=== PATIENT | male | born 1975 | race African-American/Black ===

== ENCOUNTER 2017-10-04 07:00 | Emergency (ER) | payer SELFPAY ==
[~2017-10-04] VITALS: Ht 170.2 cm; Wt 81.8 kg
[~2017-10-04 07:00] MED LIST: ABILIFY 15MG TA15 MG PO; AMBIEN 5MG TABLE5 MG PO; AZULFIDINE ENT500 MG PO; CELEXA10 MG PO; MOTRIN 800800 MG/TAB PO; PERCOCET 325 MG1 TA2 PO; XANAX .25M0.25 MG/TA PO; [UNRECOGNIZED DRUG - REMARK]
[2017-10-04 07:03] VITALS: BP 136/84; TEMP 97.2
[2017-10-04] MEDS ORDERED: ABILIFY 10MG TA10 MG PO (07:15)
[2017-10-04] MEDS ORDERED: SEROQUEL50 MG PO (07:16)
[2017-10-04 07:41] VITALS: PULSE 85
== END 2017-10-04 07:40 | disposition home or self-care (01) ==
LOC: COL.ER 07:00
DX: B07.9 Viral wart, unspecified (principal); F17.210 Nicotine dependence, cigarettes, uncomplicated

== ENCOUNTER → 2018-11-10 | Emergency (ER) | payer SELFPAY ==
[~2018-11-10] VITALS: Ht 170.2 cm; Wt 77.3 kg
[~2018-11-10] MED LIST changes: +ABILIFY 10MG TA10 MG PO; +SEROQUEL50 MG PO
[2018-11-10 12:44] VITALS: TEMP 98
[2018-11-10 13:36] LABS: BASO % 0.3 % (0.0-2.0); EOS # 0.1 (0.0-0.7); EOS % 1.1 % (0-4.0); GRAN # 3.7 (1.4-6.5); GRAN % 57.6 % (42.2-75.2); HEMATOCRIT 48.6 % (42.0-52.0); HEMOGLOBIN 16.5 g/dl (13.5-18.0); LYMPH # 1.8 (1.2-3.4); LYMPH % 28.7 % (20.0-51.0); MEAN CELL VOLUME 94 fl (80.0-100.0); MEAN CORPUSCULAR HEMOGLOBIN 32 pg (27.0-31.0); MEAN CORPUSCULAR HGB CONC 34 g/dl (33.0-37.0); MEAN PLATELET VOLUME 10.1 fl (7.4-10.4); MONO # 0.8 (0.1-0.6); MONO % 12.1 % (1.7-9.3); PLATELET COUNT 214 K/mm3 (130-400); REDCELL DISTRIBUTION WIDTH-CV 13.5 % (11.5-14.5)
[2018-11-10 13:57] LABS: ACETAMINOPHEN < 10 ug/mL (10-30); ALANINE AMINOTRANSFERASE < 6 U/L (21-72); ALBUMIN 4.5 gm/dL (3.5-5.0); ALCOHOL(ethanol),MEDICAL 57 mg/dL; ALKALINE PHOSPHATASE 81 U/L (50-136); ANION GAP 17 mmol/L (7-16); AST,SGOT 33 U/L (15-37); BILIRUBIN,TOTAL 0.4 mg/dL (0.0-1.0); BLOOD UREA NITROGEN 17 mg/dL (9-20); CALCIUM 9.7 mg/dL (8.4-10.2); CARBON DIOXIDE 16 mmol/L (22-30); CHLORIDE 110 mmol/L (98-107); GLUCOSE 98 mg/dL (74-106); POTASSIUM 3.7 mmol/L (3.4-5.0); SALICYLATE < 1.0 mg/dL; SODIUM 143 mmol/L (137-145); TOTAL PROTEIN 7.9 gm/dL (6.4-8.2)
[2018-11-10 14:12] LABS: COLLECTION METHOD CLEAN CATCH
[2018-11-10 14:18] LABS: MUCOUS Present /lpf; PH 5 (5-8); SQUAMOUS EPITHELIAL 0-2 /hpf; URINE APPEARANCE Clear; URINE BACTERIA None Seen /hpf; URINE BILIRUBIN Negative (NEGATIVE); URINE BLOOD Negative (NEGATIVE); URINE COLOR Yellow; URINE GLUCOSE Negative (NEGATIVE); URINE KETONE Trace (NEGATIVE); URINE LEUKOCYTE ESTERASE Negative (NEGATIVE); URINE NITRATE Negative (NEGATIVE); URINE PROTEIN(semi-quant) Negative (NEGATIVE); URINE UROBILINOGEN Negative (NEGATIVE)
[2018-11-10 14:27] LABS: TRICYCLIC ANTIDEPRESS URINE NEGATIVE
[2018-11-11 00:08] LABS: ALBUMIN 4.1 gm/dL (3.5-5.0); BILIRUBIN,TOTAL 0.6 mg/dL (0.0-1.0); CALCIUM 9.5 mg/dL (8.4-10.2); CREATININE, serum 1.2 (0.66-1.25); POTASSIUM 4.3 mmol/L (3.4-5.0); TOTAL PROTEIN 7.3 gm/dL (6.4-8.2)
[2018-11-11 12:15] VITALS: BP 122/65
[2018-11-12 13:10] VITALS: PULSE 78
== END ==
LOC: COL.ER 12:36
PROVIDERS: Nurse Practitioner; Physician Assistant
DX: R45.851 Suicidal ideations (principal); F17.210 Nicotine dependence, cigarettes, uncomplicated; F31.9 Bipolar disorder, unspecified; F20.9 Schizophrenia, unspecified; F43.10 Post-traumatic stress disorder, unspecified; F19.10 Other psychoactive substance abuse, uncomplicated
CPT/HCPCS: J1630; J2060

== ENCOUNTER 2019-02-08 12:15 | Emergency (ER) | payer SELFPAY ==
[~2019-02-08] VITALS: Ht 170.2 cm; Wt 72.7 kg
[2019-02-08 12:27] VITALS: TEMP 98.4
[2019-02-08 12:57] LABS: COLLECTION METHOD CLEAN CATCH
[2019-02-08 13:11] LABS: BASO % 0.2 % (0.0-2.0); EOS % 0.6 % (0-4.0); GRAN # 4.1 (1.4-6.5); GRAN % 62.1 % (42.2-75.2); HEMATOCRIT 47.4 % (42.0-52.0); HEMOGLOBIN 16.4 g/dl (13.5-18.0); LYMPH # 1.6 (1.2-3.4); MEAN CELL VOLUME 92 fl (80.0-100.0); MEAN CORPUSCULAR HEMOGLOBIN 32 pg (27.0-31.0); MEAN CORPUSCULAR HGB CONC 35 g/dl (33.0-37.0); MEAN PLATELET VOLUME 10.1 fl (7.4-10.4); MONO # 0.8 (0.1-0.6); MONO % 11.8 % (1.7-9.3); PLATELET COUNT 235 K/mm3 (130-400); RED BLOOD COUNT 5.14 M/mm3 (4.20-5.60)
[2019-02-08 13:16] LABS: TRICYCLIC ANTIDEPRESS URINE NEGATIVE
[2019-02-08 13:23] LABS: ALANINE AMINOTRANSFERASE 16 U/L (21-72); ALBUMIN 4.6 gm/dL (3.5-5.0); ALCOHOL(ethanol),MEDICAL 20 mg/dL; ALKALINE PHOSPHATASE 95 U/L (50-136); ANION GAP 11 mmol/L (7-16); AST,SGOT 29 U/L (15-37); BILIRUBIN,TOTAL 0.6 mg/dL (0.0-1.0); BLOOD UREA NITROGEN 6 mg/dL (9-20); CALCIUM 9.6 mg/dL (8.4-10.2); CARBON DIOXIDE 22 mmol/L (22-30); CHLORIDE 106 mmol/L (98-107); CREATININE, serum 0.93 (0.66-1.25); GLUCOSE 87 mg/dL (74-106); POTASSIUM 3.6 mmol/L (3.4-5.0); SODIUM 139 mmol/L (137-145)
[2019-02-08 13:25] LABS: ACETAMINOPHEN < 10 ug/mL (10-30); SALICYLATE < 1.0 mg/dL
[2019-02-08 13:43] LABS: PH 6 (5-8); SQUAMOUS EPITHELIAL None Seen /hpf; URINE APPEARANCE Clear; URINE BACTERIA None Seen /hpf; URINE BILIRUBIN Negative (NEGATIVE); URINE BLOOD Negative (NEGATIVE); URINE COLOR Straw; URINE GLUCOSE Negative (NEGATIVE); URINE KETONE Negative (NEGATIVE); URINE LEUKOCYTE ESTERASE Negative (NEGATIVE); URINE NITRATE Negative (NEGATIVE); URINE PROTEIN(semi-quant) Negative (NEGATIVE); URINE RBC 0-2 /hpf; URINE UROBILINOGEN Negative (NEGATIVE)
[2019-02-08 13:53] LABS: TSH w REFLEX 0.592 uIU/mL (0.465-4.680)
[2019-02-08 20:16] VITALS: BP 118/82; PULSE 104
== END 2019-02-08 20:16 | disposition home or self-care (01) ==
LOC: COL.ER 12:15
PROVIDERS: Physician Assistant
DX: R45.851 Suicidal ideations (principal); F17.210 Nicotine dependence, cigarettes, uncomplicated

== ENCOUNTER 2019-02-23 07:59 | Emergency (ER) | payer SELFPAY ==
[~2019-02-23] VITALS: Ht 170.2 cm; Wt 72.7 kg
[2019-02-23 08:03] VITALS: BP 141/77; PULSE 77; TEMP 97.4
[2019-02-23 08:31] LABS: COLLECTION METHOD CLEAN CATCH
[2019-02-23 08:38] LABS: MUCOUS Present /lpf; PH 6 (5-8); SQUAMOUS EPITHELIAL None Seen /hpf; URINE APPEARANCE Clear; URINE BACTERIA None Seen /hpf; URINE BILIRUBIN Negative (NEGATIVE); URINE BLOOD Negative (NEGATIVE); URINE COLOR Yellow; URINE GLUCOSE Negative (NEGATIVE); URINE KETONE Trace (NEGATIVE); URINE LEUKOCYTE ESTERASE Negative (NEGATIVE); URINE NITRATE Negative (NEGATIVE); URINE PROTEIN(semi-quant) Negative (NEGATIVE); URINE RBC 0-2 /hpf
[2019-02-23 08:54] LABS: BASO % 0.2 % (0.0-2.0); EOS # 0.1 (0.0-0.7); EOS % 0.6 % (0-4.0); GRAN # 6.7 (1.4-6.5); GRAN % 74.1 % (42.2-75.2); HEMATOCRIT 43.3 % (42.0-52.0); HEMOGLOBIN 14.7 g/dl (13.5-18.0); LYMPH # 1.4 (1.2-3.4); MEAN CELL VOLUME 94 fl (80.0-100.0); MEAN CORPUSCULAR HEMOGLOBIN 32 pg (27.0-31.0); MEAN CORPUSCULAR HGB CONC 34 g/dl (33.0-37.0); MEAN PLATELET VOLUME 10.3 fl (7.4-10.4); MONO # 0.9 (0.1-0.6); MONO % 9.9 % (1.7-9.3); PLATELET COUNT 199 K/mm3 (130-400); REDCELL DISTRIBUTION WIDTH-CV 13.6 % (11.5-14.5)
[2019-02-23 08:56] LABS: TRICYCLIC ANTIDEPRESS URINE NEGATIVE
[2019-02-23 09:02] LABS: ALANINE AMINOTRANSFERASE 12 U/L (21-72); ALBUMIN 4.2 gm/dL (3.5-5.0); ALKALINE PHOSPHATASE 67 U/L (50-136); ANION GAP 7 mmol/L (7-16); AST,SGOT 27 U/L (15-37); BILIRUBIN,TOTAL 0.3 mg/dL (0.0-1.0); BLOOD UREA NITROGEN 10 mg/dL (9-20); CALCIUM 9.5 mg/dL (8.4-10.2); CARBON DIOXIDE 25 mmol/L (22-30); CHLORIDE 108 mmol/L (98-107); CREATININE, serum 0.96 (0.66-1.25); GLUCOSE 94 mg/dL (74-106); POTASSIUM 3.9 mmol/L (3.4-5.0); SODIUM 141 mmol/L (137-145)
[2019-02-23 09:05] LABS: ACETAMINOPHEN < 10 ug/mL (10-30); ALCOHOL(ethanol),MEDICAL < 10 mg/dL; SALICYLATE < 1.0 mg/dL
== END 2019-02-23 16:35 | disposition home or self-care (01) ==
LOC: COL.ER 07:59
PROVIDERS: Physician Assistant
DX: F32.9 Major depressive disorder, single episode, unspecified (principal); R45.851 Suicidal ideations; F19.10 Other psychoactive substance abuse, uncomplicated; F20.9 Schizophrenia, unspecified; F17.210 Nicotine dependence, cigarettes, uncomplicated; Z98.890 Other specified postprocedural states

== ENCOUNTER 2020-03-10 18:09 | Emergency (ER) | payer SELFPAY ==
[~2020-03-10] VITALS: Ht 170.2 cm; Wt 65.9 kg
[2020-03-10 18:14] VITALS: TEMP 97.8
[2020-03-10 18:27] LABS: COLLECTION METHOD CLEAN CATCH
[2020-03-10 18:31] LABS: BASO % 0.3 % (0.0-2.0); EOS % 0.6 % (0-4.0); GRAN # 3.6 (1.4-6.5); GRAN % 57.5 % (42.2-75.2); HEMATOCRIT 41.9 % (42.0-52.0); HEMOGLOBIN 14.2 g/dl (13.5-18.0); LYMPH # 1.5 (1.2-3.4); MEAN CELL VOLUME 93 fl (80.0-100.0); MEAN CORPUSCULAR HEMOGLOBIN 32 pg (27.0-31.0); MEAN CORPUSCULAR HGB CONC 34 g/dl (33.0-37.0); MEAN PLATELET VOLUME 10.4 fl (7.4-10.4); MONO # 1.1 (0.1-0.6); MONO % 17.3 % (1.7-9.3); PLATELET COUNT 200 K/mm3 (130-400); RED BLOOD COUNT 4.51 M/mm3 (4.20-5.60); REDCELL DISTRIBUTION WIDTH-CV 13.4 % (11.5-14.5)
[2020-03-10 18:43] LABS: ALANINE AMINOTRANSFERASE 24 U/L (4-49); ALBUMIN 4.4 gm/dL (3.5-5.0); ALKALINE PHOSPHATASE 86 U/L (50-136); ANION GAP 8 mmol/L (7-16); AST,SGOT 51 U/L (15-37); BILIRUBIN,TOTAL 0.6 mg/dL (0.0-1.0); BLOOD UREA NITROGEN 15 mg/dL (9-20); C-REACTIVE PROTEIN 0.9 mg/dL (0.0-0.9); CALCIUM 9.2 mg/dL (8.4-10.2); CARBON DIOXIDE 25 mmol/L (22-30); CHLORIDE 103 mmol/L (98-107); GLUCOSE 92 mg/dL (74-106); MUCOUS Present /lpf; PH 5 (5-8); POTASSIUM 3.6 mmol/L (3.4-5.0); SODIUM 135 mmol/L (137-145); SQUAMOUS EPITHELIAL None Seen /hpf; TOTAL PROTEIN 7.5 gm/dL (6.4-8.2); URINE APPEARANCE Clear; URINE BACTERIA None Seen /hpf; URINE BILIRUBIN Negative (NEGATIVE); URINE BLOOD Negative (NEGATIVE); URINE COLOR Yellow; URINE GLUCOSE Negative (NEGATIVE); URINE KETONE 1+ (NEGATIVE); URINE LEUKOCYTE ESTERASE Negative (NEGATIVE); URINE NITRATE Negative (NEGATIVE); URINE PROTEIN(semi-quant) Negative (NEGATIVE); URINE RBC 0-2 /hpf
[2020-03-10 18:44] LABS: ACETAMINOPHEN < 10 ug/mL (10-30); ALCOHOL(ethanol),MEDICAL < 10 mg/dL; SALICYLATE < 1.0 mg/dL; TRICYCLIC ANTIDEPRESS URINE NEGATIVE
[2020-03-10 18:52] LABS: TROPONIN-I < 0.012 ng/mL (0.000-0.035)
[2020-03-10 21:30] VITALS: BP 135/60; PULSE 88
== END 2020-03-10 21:45 | disposition home or self-care (01) ==
LOC: COL.ER 18:09
PROVIDERS: Emergency Medicine
DX: F19.10 Other psychoactive substance abuse, uncomplicated (principal)
CPT/HCPCS: J7030

== ENCOUNTER 2020-03-13 20:14 | Emergency (ER) | payer SELFPAY ==
[~2020-03-13] VITALS: Ht 170.2 cm; Wt 63.6 kg
[2020-03-13 20:21] VITALS: TEMP 97.1
[2020-03-13 21:43] LABS: BASO % 0.2 % (0.0-2.0); EOS % 0.2 % (0-4.0); GRAN # 6.1 (1.4-6.5); GRAN % 69.1 % (42.2-75.2); HEMATOCRIT 37.9 % (42.0-52.0); HEMOGLOBIN 12.9 g/dl (13.5-18.0); LYMPH # 1.7 (1.2-3.4); LYMPH % 18.6 % (20.0-51.0); MEAN CELL VOLUME 93 fl (80.0-100.0); MEAN CORPUSCULAR HEMOGLOBIN 32 pg (27.0-31.0); MEAN CORPUSCULAR HGB CONC 34 g/dl (33.0-37.0); MEAN PLATELET VOLUME 10.8 fl (7.4-10.4); MONO % 11.7 % (1.7-9.3); PLATELET COUNT 181 K/mm3 (130-400); RED BLOOD COUNT 4.07 M/mm3 (4.20-5.60); REDCELL DISTRIBUTION WIDTH-CV 13.2 % (11.5-14.5)
[2020-03-13 21:50] LABS: ALANINE AMINOTRANSFERASE 59 U/L (4-49); ALBUMIN 4.1 gm/dL (3.5-5.0); ALKALINE PHOSPHATASE 74 U/L (50-136); ANION GAP 6 mmol/L (7-16); AST,SGOT 171 U/L (15-37); BILIRUBIN,TOTAL 0.6 mg/dL (0.0-1.0); BLOOD UREA NITROGEN 18 mg/dL (9-20); CALCIUM 8.9 mg/dL (8.4-10.2); CARBON DIOXIDE 24 mmol/L (22-30); CHLORIDE 104 mmol/L (98-107); CREATININE, serum 1.34 (0.66-1.25); GLUCOSE 90 mg/dL (74-106); POTASSIUM 4.1 mmol/L (3.4-5.0); SODIUM 134 mmol/L (137-145); TOTAL PROTEIN 6.9 gm/dL (6.4-8.2)
[2020-03-13 21:57] LABS: ACETAMINOPHEN < 10 ug/mL (10-30); ALCOHOL(ethanol),MEDICAL < 10 mg/dL; SALICYLATE < 1.0 mg/dL
[2020-03-13 22:06] LABS: COLLECTION METHOD CLEAN CATCH
[2020-03-13 22:20] LABS: TRICYCLIC ANTIDEPRESS URINE NEGATIVE
[2020-03-13 22:22] LABS: MUCOUS Present /lpf; PH 5 (5-8); SQUAMOUS EPITHELIAL 0-2 /hpf; URINE APPEARANCE Clear; URINE BACTERIA None Seen /hpf; URINE BILIRUBIN Negative (NEGATIVE); URINE BLOOD Negative (NEGATIVE); URINE COLOR Yellow; URINE GLUCOSE Negative (NEGATIVE); URINE KETONE 2+ (NEGATIVE); URINE LEUKOCYTE ESTERASE Negative (NEGATIVE); URINE NITRATE Negative (NEGATIVE); URINE PROTEIN(semi-quant) Negative (NEGATIVE); URINE RBC 0-2 /hpf
[2020-03-14 15:27] VITALS: BP 122/84; PULSE 90
== END 2020-03-14 15:28 ==
LOC: COL.ER 20:14
PROVIDERS: Nurse Practitioner
DX: R45.851 Suicidal ideations (principal); M79.621 Pain in right upper arm; F31.9 Bipolar disorder, unspecified; F20.9 Schizophrenia, unspecified; F17.210 Nicotine dependence, cigarettes, uncomplicated; F15.90 Other stimulant use, unspecified, uncomplicated
CPT/HCPCS: J2060

== ENCOUNTER 2020-04-16 11:30 | Emergency (ER) | payer SELFPAY ==
[~2020-04-16] VITALS: Ht 170.2 cm; Wt 63.6 kg
[~2020-04-16 11:30] MED LIST changes: +DOXYCYCLINE HY100 MG PO
[2020-04-16 11:34] VITALS: BP 108/73; PULSE 99; TEMP 98.2
== END 2020-04-16 13:20 | disposition home or self-care (01) ==
LOC: COL.ER 11:30
DX: S90.31XA Contusion of right foot, initial encounter (principal); F17.210 Nicotine dependence, cigarettes, uncomplicated; X50.0XXA Overexertion from strenuous movement or load, initial encounter; Y93.61 Activity, american tackle football

== ENCOUNTER 2022-04-05 13:58 | Emergency (ER) | payer SELFPAY ==
[~2022-04-05] VITALS: Ht 170.2 cm; Wt 72.7 kg
[2022-04-05 16:45] LABS: COLLECTION METHOD CLEAN CATCH
[2022-04-05 16:48] LABS: BASO % 0.4 % (0.0-2.0); EOS % 0.6 % (0.0-4.0); GRAN # 2.7 K/mm3 (1.4-6.5); GRAN % 49.5 % (42.2-75.2); HEMATOCRIT 47.4 % (42.0-52.0); HEMOGLOBIN 16.4 g/dl (13.5-18.0); LYMPH # 2.1 K/mm3 (1.2-3.4); LYMPH % 38.2 % (20.0-51.0); MEAN CELL VOLUME 90 fl (80.0-100.0); MEAN CORPUSCULAR HEMOGLOBIN 31 pg (27-31); MEAN CORPUSCULAR HGB CONC 35 g/dl (33.0-37.0); MEAN PLATELET VOLUME 10.5 fl (7.4-10.4); MONO # 0.6 K/mm3 (0.1-0.6); MONO % 11.3 % (1.7-9.3); PLATELET COUNT 233 K/mm3 (130-400); RED BLOOD COUNT 5.27 M/mm3 (4.20-5.60); REDCELL DISTRIBUTION WIDTH-CV 13.3 % (11.5-14.5)
[2022-04-05 17:05] LABS: ALANINE AMINOTRANSFERASE 29 U/L (0-55); ALBUMIN 4.5 gm/dL (3.5-5.0); ALKALINE PHOSPHATASE 88 U/L (40-150); ANION GAP 10 mmol/L (7-16); AST,SGOT 47 U/L (5-34); BILIRUBIN,TOTAL 0.7 mg/dL (0.2-1.2); BLOOD UREA NITROGEN 11 mg/dL (9-21); CALCIUM 9.5 mg/dL (8.4-10.2); CARBON DIOXIDE 27 mmol/L (22-29); CHLORIDE 103 mmol/L (98-107); CREATININE, serum 1.25 mg/dL (0.72-1.25); GLUCOSE 84 mg/dL (70-99); POTASSIUM 4.2 mmol/L (3.5-4.5); SODIUM 140 mmol/L (136-145); TOTAL PROTEIN 8.1 gm/dL (6.2-8.1)
[2022-04-05 17:06] LABS: URINE APPEARANCE Clear (CLEAR/HAZY); URINE COLOR Yellow (YELLOW); URINE GLUCOSE Negative (NEGATIVE); URINE KETONE 4+ (NEGATIVE); URINE PROTEIN(semi-quant) Negative (NEGATIVE); URINE UROBILINOGEN 0.2 E.U/dL (0.2-1.0)
[2022-04-05 17:07] LABS: ACETAMINOPHEN < 1.0 ug/mL (10-30); ALCOHOL(ethanol),MEDICAL < 10 mg/dL (0-10); SALICYLATE < 5.0 mg/dL (15.0-30.0); URINE BLOOD Negative (NEGATIVE); URINE NITRATE Negative (NEGATIVE)
[2022-04-05 17:11] LABS: MUCOUS Present (NOT PRESENT); SQUAMOUS EPITHELIAL None Seen /hpf (0-10); URINE BACTERIA None Seen /hpf (NONE SEEN); URINE RBC 0-2 /hpf (0-2)
[2022-04-05 17:12] LABS: TRICYCLIC ANTIDEPRESS URINE NEGATIVE
[2022-04-07 08:55] VITALS: BP 116/80; PULSE 92; TEMP 97.9
== END 2022-04-07 08:55 ==
LOC: COL.ER 13:58
PROVIDERS: Nurse Practitioner
DX: F15.10 Other stimulant abuse, uncomplicated (principal); F32.A Depression, unspecified; F17.210 Nicotine dependence, cigarettes, uncomplicated; Z20.822 Contact with and (suspected) exposure to COVID-19; Z91.14 Patient's other noncompliance with medication regimen

== ENCOUNTER 2022-08-24 11:09 | Emergency (ER) | payer OTHER ==
[~2022-08-24] VITALS: Ht 170.2 cm; Wt 75.0 kg
[2022-08-24 12:58] VITALS: BP 123/86; PULSE 88; TEMP 98
== END 2022-08-24 13:05 | disposition home or self-care (01) ==
LOC: COL.ER 11:09
DX: M25.511 Pain in right shoulder (principal); M25.571 Pain in right ankle and joints of right foot; M25.562 Pain in left knee; L53.9 Erythematous condition, unspecified; F17.200 Nicotine dependence, unspecified, uncomplicated; V00.148A Other scooter (nonmotorized) accident, initial encounter; Y92.410 Unspecified street and highway as the place of occurrence of the external cause

== ENCOUNTER 2022-08-26 16:12 | Emergency (ER) | payer MEDICAID ==
[~2022-08-26] VITALS: Ht 170.2 cm; Wt 75.0 kg
[2022-08-26 16:24] VITALS: TEMP 98.1
[2022-08-26 19:00] VITALS: BP 155/88; PULSE 104
== END 2022-08-26 19:00 | disposition home or self-care (01) ==
LOC: COL.ER 16:12
DX: M75.01 Adhesive capsulitis of right shoulder (principal)
CPT/HCPCS: J1100

== ENCOUNTER 2022-08-28 16:57 | Emergency (ER) | payer MEDICAID ==
[~2022-08-28] VITALS: Ht 170.2 cm; Wt 75.0 kg
[2022-08-28 16:57] VITALS: PULSE 115; TEMP 100.3
[2022-08-28 17:00] VITALS: BP 97/77
== END 2022-08-28 17:47 | disposition home or self-care (01) ==
LOC: COL.ER 16:57
DX: M25.511 Pain in right shoulder (principal); R45.6 Violent behavior; R00.0 Tachycardia, unspecified

== ENCOUNTER 2022-08-30 14:05 | Emergency (ER) | payer MEDICAID ==
[~2022-08-30] VITALS: Ht 170.2 cm; Wt 75.0 kg
[2022-08-30 14:07] VITALS: BP 156/99; PULSE 105; TEMP 98.1
[2022-08-30] MEDS ORDERED: NAPROSYN500 MG PO (15:05)
== END 2022-08-30 15:40 | disposition home or self-care (01) ==
LOC: COL.ER 14:05
DX: M25.511 Pain in right shoulder (principal); F17.200 Nicotine dependence, unspecified, uncomplicated; Z28.310 Unvaccinated for COVID-19

== ENCOUNTER 2024-02-05 13:20 | Emergency (ER) | payer SELFPAY ==
[~2024-02-05] VITALS: Ht 170.2 cm; Wt 84.1 kg
[~2024-02-05 13:20] MED LIST changes: +NAPROSYN500 MG PO
[2024-02-05 15:33] VITALS: BP 133/80; PULSE 110; TEMP 98.5
[2024-02-05] MEDS ORDERED: BACTRIM DS 8001 TAB PO (15:55)
== END 2024-02-05 16:07 | disposition home or self-care (01) ==
LOC: COL.ER 13:20
DX: S90.922A Unspecified superficial injury of left foot, initial encounter (principal); F17.200 Nicotine dependence, unspecified, uncomplicated; X58.XXXA Exposure to other specified factors, initial encounter

== ENCOUNTER 2024-03-22 15:43 | Emergency (ER) | payer SELFPAY ==
[~2024-03-22] VITALS: Ht 170.2 cm; Wt 78.2 kg
[~2024-03-22 15:43] MED LIST changes: +BACTRIM DS 8001 TAB PO
[2024-03-22 19:37] LABS: COLLECTION METHOD CLEAN CATCH
[2024-03-22 19:52] LABS: URINE APPEARANCE CLEAR (CLEAR/HAZY); URINE BLOOD NEGATIVE (NEGATIVE); URINE COLOR YELLOW (YELLOW); URINE GLUCOSE NEGATIVE (NEGATIVE); URINE KETONE 1+ (NEGATIVE); URINE NITRATE NEGATIVE (NEGATIVE); URINE PROTEIN(semi-quant) NEGATIVE (NEGATIVE)
[2024-03-22 20:02] LABS: TRICYCLIC ANTIDEPRESS URINE NEGATIVE (NEGATIVE)
[2024-03-22 21:55] LABS: BASO % 0.4 % (0.0-2.0); EOS # 0.1 K/mm3 (0.0-0.7); EOS % 1.2 % (0.0-4.0); GRAN # 2.8 K/mm3 (1.4-6.5); GRAN % 55.2 % (42.2-75.2); HEMATOCRIT 42.7 % (42.0-52.0); HEMOGLOBIN 14.4 g/dl (13.5-18.0); LYMPH # 1.7 K/mm3 (1.2-3.4); LYMPH % 32.9 % (20.0-51.0); MEAN CELL VOLUME 90 fl (80.0-100.0); MEAN CORPUSCULAR HEMOGLOBIN 30 pg (27-31); MEAN CORPUSCULAR HGB CONC 34 g/dl (33.0-37.0); MEAN PLATELET VOLUME 10.7 fl (7.4-10.4); MONO # 0.5 K/mm3 (0.1-0.6); MONO % 10.1 % (1.7-9.3); PLATELET COUNT 261 K/mm3 (130-400); RED BLOOD COUNT 4.73 M/mm3 (4.20-5.60); REDCELL DISTRIBUTION WIDTH-CV 13.9 % (11.5-14.5)
[2024-03-22 22:04] LABS: ALANINE AMINOTRANSFERASE 18 U/L (0-55); ALBUMIN 3.5 g/dL (3.5-5.0); ALKALINE PHOSPHATASE 71 U/L (40-150); ANION GAP 11 mmol/L (7-16); AST,SGOT 26 U/L (5-34); BILIRUBIN,TOTAL 0.3 mg/dL (0.2-1.2); BLOOD UREA NITROGEN 9 mg/dL (9-21); CHLORIDE 108 mEq/L (98-107); CREATININE, serum 0.96 mg/dL (0.72-1.25); GLUCOSE 102 mg/dL (70-99); POTASSIUM 4.1 mEq/L (3.5-4.5); SODIUM 141 mEq/L (136-145); TOTAL PROTEIN 6.6 g/dl (6.2-8.1)
[2024-03-22 22:06] LABS: ALCOHOL(ethanol),MEDICAL < 10 mg/dL (0-10); SALICYLATE < 5.0 mg/dL (15.0-30.0)
[2024-03-23] MEDS ORDERED: Nicotine 21 MG DAILY PATCH TD ONE (11:00)
[2024-03-23] MEDS ORDERED: Ibuprofen 600 MG TAB PO ONE (11:15)
[2024-03-23] MEDS ORDERED: [UNRECOGNIZED DRUG - REMARK] PO SCH (21:51)
[2024-03-23] MEDS ORDERED: QUEtiapine 25 MG TAB PO SCH (22:00)
[2024-03-23] MEDS ORDERED: Nicotine 14 MG DAILY PATCH TD ONE (22:00)
[2024-03-23] MEDS ORDERED: QUEtiapine 100 MG TAB PO SCH (22:30)
[2024-03-24 11:33] VITALS: TEMP 98.3
[2024-03-24] MEDS ORDERED: OLANZapine 5 MG TAB PO ONE (13:00)
[2024-03-24] MEDS ORDERED: Nicotine 14 MG DAILY PATCH TD ONE (20:45)
[2024-03-25 01:20] VITALS: BP 136/89; PULSE 105
== END 2024-03-25 01:20 ==
LOC: COL.ER 15:43
PROVIDERS: Emergency Medicine
DX: R45.851 Suicidal ideations (principal)